=== PATIENT | female | born 1940 ===

== ENCOUNTER 2024-07-02 05:00 | Day surgery (SDC) | payer OTHER ==
[2024-06-23 12:37] VITALS: BP 168/77
[2024-06-23 12:54] LABS: HEMATOCRIT 42.5 % (36.0-45.00); HEMOGLOBIN 14.1 g/dL (12.0-15.00); MEAN CELL VOLUME 85.7 fL (80.00-100.00); MEAN CORPUSCULAR HEMOGLOBIN 28.4 pg (27.00-32.0); MEAN CORPUSCULAR HGB CONC 33.1 g/dl (32.0-36.0); PLATELET COUNT 219 K/uL (150-450); RED BLOOD COUNT 4.96 M/uL (4.00-6.00); RED CELL DISTRIBUTION WIDTH 15.4 % (11.5-14.5)
[2024-06-23 13:08] LABS: INR 1.07; PARTIAL THROMBOPLASTIN TIME 27.3 SECONDS (22.0-34.0); PROTHROMBIN TIME 11.6 SECONDS (9.0-11.5)
[2024-06-23 13:18] LABS: URINE APPEARANCE Cloudy; URINE BILIRRUBIN Negative (NEGATIVE); URINE BLOOD NHT; URINE COLOR Yellow; URINE GLUCOSE Negative (NEGATIVE); URINE KETONE Negative (NEGATIVE); URINE LEUKOCYTE Large; URINE NITRATE Negative; URINE PROTEIN Negative (NEGATIVE); URINE UROBILINOGEN 0.2 E.U./dl
[2024-06-23 13:24] LABS: URINE BACTERIA 1254.5 uL (0.0-1933); URINE RBC 16.3 uL (0.0-20.8)
[2024-06-23 13:54] LABS: ALBUMIN 3.5 gm/dL (3.4-5.0); CALCIUM 9.9 mg/dL (8.5-10.1); CREATININE SERUM 0.85 mg/dL (0.55-1.02); GFR 64.03; PHOSPHOROUS 3.1 mg/dL (2.5-4.9); POTASSIUM 4.08 mEq/L (3.5-5.1)
[2024-06-23 13:56] LABS: URINE CAST 0.29 uL (0.0-1.40)
[~2024-07-02 05:00] MED LIST: AVAPRO75 MG PO; NORVASC5 MG PO
[2024-07-02] MEDS ORDERED: EPINEPHRINE HCL/PF 1 MG/ML AMPUL ONE (05:28)
[2024-07-02] MEDS ORDERED: LIDOCAINE HCL 1%/EPINEPHRINE 20ML VIAL IJ ONE (05:29)
[2024-07-02] MEDS ORDERED: POVIDONE-IODINE 118 ML BOTT TOP ONE (05:29)
[2024-07-02] MEDS ORDERED: CEFAZOLIN SODIUM 1,000 MG VIAL ONE (07:14)
[2024-07-02] MEDS ORDERED: DEXAMETHASONE SODIUM PHOSPHATE 4 MG/ML VIAL ONE (10:07)
[2024-07-02] MEDS ORDERED: AMOX-CLAV 875-1 EACH PO (10:49)
== END 2024-07-02 13:30 | disposition home or self-care (01) ==
LOC: CIR.AMB 05:00 → EDSTATUS 07-06 10:45 → CIR.AMB 07-06 10:45
PROVIDERS: ATTEND Otolaryngology Otology & Neurotology
DX: H90.A22 Sensorineural hearing loss, unilateral, left ear, with restricted hearing on the contralateral side (principal); H90.3 Sensorineural hearing loss, bilateral; I10 Essential (primary) hypertension
CPT/HCPCS: 69930; L8699